=== PATIENT | female | born 1965 | race American Indian/Alaskan Native ===

== ENCOUNTER 2017-07-12 15:10 | Inpatient (IN) | payer OTHER ==
[2017-07-12 15:54] LABS: Basophils % (Auto) 0.8 % (0.0-1.8); Eosinophils % (Auto) 2.4 % (0.0-4.3); Hematocrit 36.7 % (30.3-42.9); Hemoglobin 12.7 gm/dl (10.1-14.3); Mean Corpuscular HGB Conc 35 % (30-34); Mean Corpuscular Hemoglobin 33 pg (28-32); Mean Corpuscular Volume 96 fl (79-97); Platelet Count 258 K/mm3 (140-440); Red Blood Count 3.84 M/mm3 (3.65-5.03); Red Cell Distribution Width 14.3 % (13.2-15.2); White Blood Count 5.5 K/mm3 (4.5-11.0)
[2017-07-12] MEDS ORDERED: ATIVAN IV ONE (15:56)
[2017-07-12 16:12] LABS: Alanine Aminotransferase 19 units/L (7-56); Albumin/Globulin Ratio 1.3 %; Alkaline Phosphatase 64 units/L (35-129); Anion Gap 16 mmol/L; BUN/Creatinine Ratio 18.57; Blood Urea Nitrogen 13 mg/dL (7-17); Calcium 8.8 mg/dL (8.4-10.2); Carbon Dioxide 28 mmol/L (22-30); Chloride 99.5 mmol/L (98-107); Glucose 138 mg/dL (65-100); Potassium 3.5 mmol/L (3.6-5.0); Sodium 140 mmol/L (137-145)
[2017-07-12 16:20] LABS: Creatine Kinase 525 units/L (30-135)
--- NOTE | 2017-07-12 16:44 | Cat Scan Report ---
CT HEAD WITHOUT CONTRAST INDICATION: Syncope. COMPARISON: None similar. FINDINGS: Noncontrast head CT demonstrates normal, symmetric ventricles and sulci without acute or recent infarct, hemorrhage, mass effect or midline shift. No abnormal extra-axial fluid collections. Minimal benign right basal ganglia calcification. Posterior fossa structures and basilar cisterns appear within normal limits. Clear paranasal sinuses and mastoid air cells. Intact calvarium. Normal overlying scalp soft tissues. Numerous radiopaque dental material incidentally noted. CONCLUSION: No acute intracranial CT abnormality, as described. Thank you for the opportunity to participate in this patient's care.
--- NOTE | 2017-07-12 17:19 | Emergency Department Report ---
ED Syncope HPI - General Chief Complaint: Syncope Stated Complaint: SYNCOPE EPISODE/HEADACHE Time Seen by Provider: 07/12/17 15:55 Source: patient Exam Limitations: no limitations - History of Present Illness Initial Comments: 52-year-old female past medical history hypertension and sleep apnea presents to the hospital with complaints of syncope. Patient states she woke up this a.m. with a right sided aching headache. Throughout the day headache gradually worsened and currently 9/10 in intensity. She denied nausea, vomiting, blurry vision, focal weakness, chest pain, or shortness of breath. While at work patient had a syncopal episode preceding by lightheadedness. I was called to the bedside step RN due to seizure like activity. Patient appears to be having a pseudoseizure. She was fluttering her eyes and causing the right side of her mouth to twist. However, patient is able to speak, follow commands, track my finger with her eyes and does not have any neurologic deficits during this seizure like activity. - Related Data Allergies/Adverse Reactions: Allergies No Known Allergies Allergy (Unverified 09/22/13 11:12) Home Medications: Ambulatory Orders Atenolol [Tenormin] 50 mg PO DAILY 09/22/13 Lisinopril [Zestril] 20 mg PO QDAY 09/22/13 Potassium Chloride [Klor-Con 10] 10 meq PO DAILY 09/22/13 Amoxicillin/K Clav Tab [Augmentin 500 mg] 1 each PO Q12HR #20 tablet 06/10/14 Fluticasone [Flonase] 1 spray NS QDAY #1 bottle 06/10/14 Promethazine /Codeine [Phenergan/Codeine 6.25-10 mg/5 ml] 5 ml PO Q6H PRN #120 ml 06/10/14 Cyclobenzaprine [Flexeril] 10 mg PO TID PRN #15 tablet 05/26/16 Ibuprofen [Motrin] 800 mg PO Q8HR PRN #15 tablet 05/26/16 ED Review of Systems ROS: Stated complaint: SYNCOPE EPISODE/HEADACHE Other details as noted in HPI Comment: All other systems reviewed and negative Other: Constitutional: No fevers chills Eyes: No eye pain visual changes ENT: No ear pain or throat pain Neck: Denies pain Respiratory: Denies cough wheezing shortness of breath Cardiovascular: Denies chest pain, palpitations, syncope GI: Denies abdominal pain, nausea, vomiting, diarrhea : Denies dysuria Musculoskeletal: Denies back pain Skin: Denies rash, lesions, erythema Neurologic: as per hpi Psychiatric: Denies suicidal ideation, hallucinations ED Past Medical Hx - Past Medical History Hx Hypertension: Yes Additional medical history: sleep apnea - Surgical History Additional Surgical History: breast surgery 82, left knee pain 2006,PARTIAL HYSTERECTOMY - Social History Smoking Status: Never Smoker Substance Use Type: None - Medications Home Medications: Home Medications Medication Instructions Recorded Confirmed Last Taken Type Atenolol [Tenormin] 50 mg PO DAILY 09/22/13 06/10/14 06/09/14 08:00 History Lisinopril [Zestril] 20 mg PO QDAY 09/22/13 06/10/14 06/09/14 08:00 History Potassium Chloride [Klor-Con 10] 10 meq PO DAILY 09/22/13 06/10/14 06/09/14 08: 00 History Amoxicillin/K Clav Tab [Augmentin 1 each PO Q12HR #20 tablet 06/10/14 Unknown Rx 500 mg] Fluticasone [Flonase] 1 spray NS QDAY #1 bottle 06/10/14 Unknown Rx Promethazine /Codeine 5 ml PO Q6H PRN #120 ml 06/10/14 Unknown Rx [Phenergan/Codeine 6.25-10 mg/5 ml] Cyclobenzaprine [Flexeril] 10 mg PO TID PRN #15 tablet 05/26/16 Unknown Rx Ibuprofen [Motrin] 800 mg PO Q8HR PRN #15 tablet 05/26/16 Unknown Rx ED Physical Exam - General Limitations: No Limitations - Other Other exam information: General: No limitations Head exam: Atraumatic, normocephalic Eyes exam: Normal appearance ENT: Moist mucous membrane, normal oropharynx Neck exam: Normal inspection, full range of motion Respiratory exam: Clear to auscultation bilateral, no wheezes, rales, crackles Cardiovascular: Normal rate and rhythm, normal heart sounds Abdomen: Soft, nondistended, and nontender, with normal bowel sounds, no rebound, or guarding Extremity: Full range of motion normal inspection no deformity Back: Normal Inspection, full range of motion, no tenderness Neurologic: Alert, oriented x3, cranial nerves intact, no motor or sensory deficit Psychiatric: normal affect, normal mood Skin: Warm, dry, intact ED Course Vital Signs 07/12/17 07/12/17 07/12/17 15:21 16:10 17:59 Temperature 98.6 F 98.4 F Pulse Rate 70 65 70 Respiratory 23 23 18 Rate Blood Pressure 166/84 Blood Pressure 152/74 127/69 [Left] O2 Sat by Pulse 97 95 98 Oximetry - Reevaluation(s) Reevaluation #1: 07/12/17 Patient decreased fluttering eye movements during examination but received Ativan 0.5 mg ED Medical Decision Making - Lab Data Result diagrams: 07/12/17 15:36 07/12/17 15:36 Lab Results 07/12/17 07/12/17 07/12/17 Range/Units 15:36 15:36 15:49 WBC 5.5 (4.5-11.0) K/mm3 RBC 3.84 (3.65-5.03) M/mm3 Hgb 12.7 (10.1-14.3) gm/dl Hct 36.7 (30.3-42.9) % MCV 96 (79-97) fl MCH 33 H (28-32) pg MCHC 35 H (30-34) % RDW 14.3 (13.2-15.2) % Plt Count 258 (140-440) K/mm3 Lymph % (Auto) 33.6 (13.4-35.0) % [place] % (Auto) 7.6 H (0.0-7.3) % Eos % (Auto) 2.4 (0.0-4.3) % Baso % (Auto) 0.8 (0.0-1.8) % Lymph # 1.9 (1.2-5.4) K/mm3 [place] # 0.4 (0.0-0.8) K/mm3 Eos # 0.1 (0.0-0.4) K/mm3 Baso # 0.0 (0.0-0.1) K/mm3 Seg Neutrophils % 55.6 (40.0-70.0) % Seg Neutrophils # 3.1 (1.8-7.7) K/mm3 Sodium 140 (137-145) mmol/L Potassium 3.5 L (3.6-5.0) mmol/L Chloride 99.5 (98-107) mmol/L Carbon Dioxide 28 (22-30) mmol/L Anion Gap 16 mmol/L BUN 13 (7-17) mg/dL Creatinine 0.7 (0.7-1.2) mg/dL Estimated GFR > 60 ml/min BUN/Creatinine Ratio 18.57 % Glucose 138 H (65-100) mg/dL POC Glucose (70-105) Calcium 8.8 (8.4-10.2) mg/dL Total Bilirubin 0.30 (0.1-1.2) mg/dL AST 23 (5-40) units/L ALT 19 (7-56) units/L Alkaline Phosphatase 64 (35-129) units/L Total Creatine Kinase 525 H (30-135) units/L Troponin T < 0.010 (0.00-0.029) ng/mL Total Protein 7.0 (6.3-8.2) g/dL Albumin 4.0 (3.9-5) g/dL Albumin/Globulin Ratio 1.3 % Triglycerides (2-149) mg/dL Cholesterol (50-199) mg/dL LDL Cholesterol Direct (50-130) mg/dL HDL Cholesterol (40-59) mg/dL Cholesterol/HDL Ratio % 07/12/17 07/12/17 Range/Units 15:49 15:57 WBC (4.5-11.0) K/mm3 RBC (3.65-5.03) M/mm3 Hgb (10.1-14.3) gm/dl Hct (30.3-42.9) % MCV (79-97) fl MCH (28-32) pg MCHC (30-34) % RDW (13.2-15.2) % Plt Count (140-440) K/mm3 Lymph % (Auto) (13.4-35.0) % [place] % (Auto) (0.0-7.3) % Eos % (Auto) (0.0-4.3) % Baso % (Auto) (0.0-1.8) % Lymph # (1.2-5.4) K/mm3 [place] # (0.0-0.8) K/mm3 Eos # (0.0-0.4) K/mm3 Baso # (0.0-0.1) K/mm3 Seg Neutrophils % (40.0-70.0) % Seg Neutrophils # (1.8-7.7) K/mm3 Sodium (137-145) mmol/L Potassium (3.6-5.0) mmol/L Chloride (98-107) mmol/L Carbon Dioxide (22-30) mmol/L Anion Gap mmol/L BUN (7-17) mg/dL Creatinine (0.7-1.2) mg/dL Estimated GFR ml/min BUN/Creatinine Ratio % Glucose (65-100) mg/dL POC Glucose 135 H (70-105) Calcium (8.4-10.2) mg/dL Total Bilirubin (0.1-1.2) mg/dL AST (5-40) units/L ALT (7-56) units/L Alkaline Phosphatase (35-129) units/L Total Creatine Kinase (30-135) units/L Troponin T (0.00-0.029) ng/mL Total Protein (6.3-8.2) g/dL Albumin (3.9-5) g/dL Albumin/Globulin Ratio % Triglycerides 143 (2-149) mg/dL Cholesterol 191 (50-199) mg/dL LDL Cholesterol Direct 120 (50-130) mg/dL HDL Cholesterol 43 (40-59) mg/dL Cholesterol/HDL Ratio 4.44 % - EKG Data -: EKG Interpreted by Me (sinus rate 68 LVH lateral T inversion) - EKG Data When compared to previous EKG there are: previous EKG unavailable - Radiology Data Radiology results: report reviewed (CT head: No acute findings) - Medical Decision Making Other differential intracranial hemorrhage Plan to admit patient to hospital due to syncopal episode. CT unremarkable. Exhibiting pseudoseizure like activity in the ED. - Differential Diagnosis pseudoseizure, seizure, syncope, vasovagal, anemia, arrhythmia, migraine, Critical Care Time: No Critical care attestation.: If time is entered above; I have spent that time in minutes in the direct care of this critically ill patient, excluding procedure time. ED Disposition Clinical Impression: Syncope, Pseudoseizure Disposition: OP ADMIT IP TO THIS HOSP Is pt being admited?: Yes Condition: Stable Time of Disposition: 17:40 (Dr Manrique/hosp)
--- NOTE | 2017-07-12 17:41 | History and Physical Report ---
History of Present Illness Chief complaint: I have a headache, and i passed out History of present illness: 52 YO Female with Obesity, TOMMY, HTN presents to ED for evaluation. Pt states that she experienced an acute onset headache upon waking this morning, which worsened throughout the day, and while working at her job she began to feel lightheaded, and subsequently lost consciousness. EMS notified, and patient transported to [facility]. Pt denies fever, chills, CP, Palpitations, Trauma, Vision loss, blurred vision, NVD. Pt seen and evaluated in ED and observed to have evidence of focal seizure like activity. Past History Past Medical History: hypertension, other (obesity,TOMMY) Past Surgical History: hysterectomy, Other (breast surgery) Social history: , lives with family. denies: smoking, alcohol abuse, prescription drug abuse, IV drug use Family history: diabetes, hypertension Medications and Allergies Allergies Allergy/AdvReac Type Severity Reaction Status Date / Time No Known Allergies Allergy Unverified 09/22/13 11:12 Home Medications Medication Instructions Recorded Confirmed Last Taken Type Atenolol [Tenormin] 50 mg PO DAILY 09/22/13 07/12/17 06/09/14 08:00 History Lisinopril [Zestril] 20 mg PO QDAY 09/22/13 07/12/17 06/09/14 08:00 History Potassium Chloride [Klor-Con 10] 20 meq PO DAILY 09/22/13 07/12/17 06/09/14 08: 00 History Triamterene/Hydrochlorothiazid 1 cap PO QDAY 07/12/17 07/12/17 Unknown History [Triamterene-Hctz 50-25 mg Cap] Review of Systems Constitutional: no weight loss, no weight gain, no fever, no chills, no sweats Ears, nose, mouth and throat: no ear pain, no ear discharge, no tinnitis, no decreased hearing, no nose pain Breasts: no change in shape, no swelling, no mass Cardiovascular: syncope, no chest pain, no orthopnea, no palpitations, no rapid/ irregular heart beat, no edema Respiratory: no cough, no cough with sputum, no excessive sputum, no hemoptysis , no shortness of breath Gastrointestinal: no abdominal pain, no nausea, no vomiting, no diarrhea, no constipation Genitourinary Female: no pelvic pain, no flank pain, no menorrhagia, no dysuria , no urinary frequency, no urgency Rectal: no pain, no incontinence, no bleeding Musculoskeletal: no neck stiffness, no neck pain, no shooting arm pain, no arm numbness/tingling, no low back pain, no shooting leg pain, no leg numbness/ tingling Integumentary: no rash, no pruritis, no redness, no sores, no wounds, no jaundice Neurological: seizures, syncope, no transient paralysis, no paralysis, no weakness, no tingling, no tremors, no ataxia, no lack of coordination Psychiatric: no anxiety, no memory loss, no change in sleep habits, no sleep disturbances, no insomnia, no hypersomnia, no change in appetite, no change in libido Endocrine: no cold intolerance, no heat intolerance, no polyphagia, no excessive thirst, no polydipsia, no polyuria, no nocturia Hematologic/Lymphatic: no easy bruising, no easy bleeding Allergic/Immunologic: no urticaria, no allergic rhinitis, no wheezing Exam - Constitutional Vitals: Temp Pulse Resp BP Pulse Ox 98.4 F 65 23 152/74 95 07/12/17 16:10 07/12/17 16:10 07/12/17 16:10 07/12/17 16:10 07/12/17 16:10 General appearance: Present: mild distress, obese - EENT Eyes: Present: PERRL ENT: hearing intact, clear oral mucosa - Neck Neck: Present: supple, normal ROM - Respiratory Respiratory effort: normal Respiratory: bilateral: CTA - Cardiovascular Heart Sounds: Present: S1 & S2. Absent: rub, click - Extremities Extremities: pulses symmetrical, No edema Peripheral Pulses: within normal limits - Abdominal General gastrointestinal: Present: soft, non-tender, non-distended, normal bowel sounds Female genitourinary: Present: normal - Integumentary Integumentary: Present: clear, warm, dry - Musculoskeletal Musculoskeletal: gait normal, strength equal bilaterally - Psychiatric Psychiatric: appropriate mood/affect, intact judgment & insight - Neurologic Neurologic: CNII-XII intact, moves all extremities Results - Labs CBC & Chem 7: 07/12/17 15:36 07/12/17 15:36 Labs: Abnormal lab results 07/12/17 07/12/17 07/12/17 Range/Units 15:36 15:36 15:49 MCH 33 H (28-32) pg MCHC 35 H (30-34) % [place] % (Auto) 7.6 H (0.0-7.3) % Potassium 3.5 L (3.6-5.0) mmol/L Glucose 138 H (65-100) mg/dL POC Glucose (70-105) Total Creatine Kinase 525 H (30-135) units/L 07/12/17 Range/Units 15:57 MCH (28-32) pg MCHC (30-34) % [place] % (Auto) (0.0-7.3) % Potassium (3.6-5.0) mmol/L Glucose (65-100) mg/dL POC Glucose 135 H (70-105) Total Creatine Kinase (30-135) units/L Assessment and Plan - Patient Problems (1) CVA (cerebral vascular accident) Current Visit: Yes Status: Acute Qualifiers: CVA mechanism: C Precerebral and cerebral artery: P Laterality of affected vessel: L Plan to address problem: Stroke protocol: Antiplatelet therapy, CT head, MRI, MRA, Echo, carotid Doppler , Lipid panel, PT/OT/ Speech therapy (2) Unconscious state Current Visit: Yes Status: Acute Plan to address problem: CT head, neuro checks, serial physical exam, (3) Accelerated essential hypertension Current Visit: Yes Status: Acute Plan to address problem: Monitor bp q shift, permissive htn overnight: Systolic range 165-185 (4) Pseudoseizure Current Visit: Yes Status: Acute Plan to address problem: EEG, Neuro checks, supportive care (5) DVT prophylaxis Current Visit: Yes Status: Acute
[2017-07-12] MEDS ORDERED: PROVENTIL IH PRN (17:54)
[2017-07-12] MEDS ORDERED: ZOFRAN IV PRN ×2 (17:54→17:56)
[2017-07-12] MEDS ORDERED: SODIUM CHLORIDE FLUSH SYRINGE 10 ML IV PRN (17:56)
[2017-07-12] MEDS ORDERED: REGLAN PO PRN (17:56)
[2017-07-12] MEDS ORDERED: MILK OF MAGNESIA PO PRN (17:56)
[2017-07-12] MEDS ORDERED: DULCOLAX PR PRN (17:56)
[2017-07-12] MEDS ORDERED: TYLENOL PO PRN (17:56)
[2017-07-12] MEDS ORDERED: PHENERGAN PR PRN (17:56)
--- NOTE | 2017-07-12 19:35 | Magnetic Resonance Report ---
FINAL REPORT PROCEDURE: Magnetic resonance angiogram of the brain without contrast. TECHNIQUE: Axial 3-D [id number] MR angiography of the [place] and brain was performed. The source images were reconstructed in various views using maximum intensity projection. HISTORY: Stroke. COMPARISON: No prior studies are available for comparison. FINDINGS: Both distal internal carotid arteries are patent. Both anterior cerebral arteries are patent. The anterior communicating artery is not definitely visualized. Both middle cerebral arteries are patent. The posterior communicating arteries are not visible. Both distal vertebral arteries are patent. Both posterior inferior cerebellar arteries are patent. The basilar artery is patent. The anterior inferior cerebellar arteries are not visible. Both superior cerebellar and both posterior cerebral arteries are patent. There are no signs of aneurysm disease. There are no signs of a vasculitis. There are no definite embolic occlusions. IMPRESSION: No significant abnormality.
[2017-07-12] MEDS: PERCOCET 5/325 PO PRN (19:38)
--- NOTE | 2017-07-12 20:22 | Magnetic Resonance Report ---
FINAL REPORT PROCEDURE: MRI brain without contrast. TECHNIQUE: Magnetic resonance imaging of the brain was performed without contrast material. HISTORY: Stroke. COMPARISON: CT head done earlier today. FINDINGS: The ventricles are normal in size. There are a few tiny focal areas of FLAIR signal abnormality within the white matter of both cerebral hemispheres. This is not unusual for age and likely represents chronic microvascular ischemic change. The [place]errill matter and white matter otherwise have normal signal intensity. There are no mass lesions. There is no intracranial hemorrhage. There are no signs of restricted diffusion. The major cerebral vascular flow voids appear patent. The mastoid air cells and paranasal sinuses are clear. IMPRESSION: Normal study for age.
[2017-07-12] MEDS: ZOCOR PO SCH (22:10)
[2017-07-13] MEDS ORDERED: K-DUR PO NR (11:00)
[2017-07-13] MEDS ORDERED: PNEUMOVAX 23 IM ONE (12:00)
[2017-07-13] MEDS ORDERED: Fluarix Quad 2017-2018(36 MOS+) IM ONE (12:00)
[2017-07-13] MEDS: PERCOCET 5/325 PO PRN (14:45)
--- NOTE | 2017-07-13 15:31 | Progress Note ---
Assessment and Plan CVA (cerebral vascular accident) Suspected on admission admitted with Stroke protocol: cont Antiplatelet therapy, CT head, MRI, MRA, negative for acute CVA FOLLOW Echo, carotid Doppler, Lipid panel Unconscious state LIKELY FROM SYNCOPE WAIT FOR 2D ECHO Accelerated essential hypertension Monitor bp q shift, RESUME HOME MEDS Pseudoseizure ORDERED EEG, CONTINUE Neuro checks, supportive care CONSULTED NEURO Mild rhabdomyolysis - likely from pseudoseizure?? - monitor CPK, iv fluid Hypokalemia - replete and monitor DVT prophylaxis Current Visit: Yes Status: Acute ON [place] Subjective Date of service: 07/13/17 Interval history: Pt seen and examined c/o generalized weakness family was at bedside, updated Objective - Constitutional Vitals: Vital Signs - 12hr 07/13/17 07/13/17 07/13/17 03:48 04:25 09:51 Temperature 98.6 F Pulse Rate 64 60 Respiratory 20 Rate Respiratory Rate [Head] Blood Pressure Blood Pressure 146/79 [Left] O2 Sat by Pulse 99 100 Oximetry 07/13/17 07/13/17 07/13/17 10:00 10:07 12:04 Temperature 98.5 F Pulse Rate 60 63 Respiratory 20 20 Rate Respiratory 20 Rate [Head] Blood Pressure 142/73 Blood Pressure [Left] O2 Sat by Pulse 100 96 Oximetry 07/13/17 14:45 Temperature Pulse Rate Respiratory 20 Rate Respiratory Rate [Head] Blood Pressure Blood Pressure [Left] O2 Sat by Pulse Oximetry General appearance: Present: no acute distress, obese - EENT Eyes: PERRL, EOM intact ENT: hearing intact, clear oral mucosa Ears: bilateral: normal - Neck Neck: supple, normal ROM - Respiratory Respiratory effort: normal Respiratory: bilateral: CTA - Cardiovascular Rhythm: regular Heart Sounds: Present: S1 & S2. Absent: gallop, rub Extremities: pulses intact, No edema, normal color, Full ROM - Gastrointestinal General gastrointestinal: Present: soft, non-tender, non-distended, normal bowel sounds - Integumentary Integumentary: clear, warm, dry - Musculoskeletal Musculoskeletal: 1, strength equal bilaterally - Neurologic Neurologic: moves all extremities - Psychiatric Psychiatric: cooperative - Labs CBC & Chem 7: 07/12/17 15:36 07/12/17 15:36 - Imaging and cardiology CT Scan - head: report reviewed (no acute process) MRI - head: report reviewed (no acute cva)
[2017-07-13] MEDS ORDERED: HYDROCHLOROTHIAZID PO SCH (18:30)
[2017-07-13] MEDS ORDERED: TRIAMTERENE PO SCH (18:30)
[2017-07-13] MEDS ORDERED: NON-FORMULARY (Potassium Chloride [Klor-Con 10] 20 MEQ) PO SCH (18:30)
[2017-07-13] MEDS: ZESTRIL PO SCH (21:18)
[2017-07-13] MEDS: TENORMIN PO SCH (21:18)
[2017-07-13] MEDS: ZOCOR PO SCH (21:19)
[2017-07-13] MEDS: MAXZIDE-25 PO SCH (21:19)
[2017-07-13] MEDS: K-DUR PO SCH (21:19)
[2017-07-14] MEDS: PERCOCET 5/325 PO PRN ×2 (00:25→07:52)
--- NOTE | 2017-07-14 09:38 | History and Physical Report ---
History of Present Illness Date of examination: 07/14/17 Date of admission: 07/12/17 18:55 Chief complaint: NEUROLOGY CONSULT NOTE: Hx reviewed in chart and with patient who is lying in bed with in room ( who spent the night in her room). 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 This was dull and steady, not throbbing and pounding, no n or v, no visual scintillations. She had breakfast at work, worked till approx noon (she usually gets off at 2 pm ), then felt light headed. She was walking and felt more light headed, said so , and a boiler house supervisor lowered her to the floor (she did not fall down). The next thing the patient was aware of was the fire dept there and ambulance personnel as well. She was bought to the ED where an elaborated seizure was witnessed and nasir described by Dr Shayna Sidhu (see her note of 07/12) with eyes fluttering, her mouth twisted to the right side, but able to talk and follow commands the whole time. she could move her eyes to the right and to the left on command. An MRI/MRA of brain were normal as was a CT scan head. 2D echo normal with EF 55 - 60%. The patient has been very "tired" for six months, has HTN and OBS using CPAP for over ten years, has gained 30 lbs in two years. ROS: no unilat weakness or numbness, no diplopia, no speech difficulty, no antecedent hx CARREON or of syncope or of Seizures. no fam hx seizurues. no recent fever, sweats, chills, no chest pain or cardiac palp. An 11 point ROS is negative. SH/FH not re-reviewed MEDS/ALLERGIES: see chart EXAM: MS: fully alert, cooperative, speech fluent and clear without errors, recent and remote memory normal, fund of knowledge normal CN: 2 - 12 nl MOT: nl all four extem prox and dist SENS: in tact to light touch througout CEREB: fnf nl bilat DRTs: 1+ biceps bilat, trace at knees, absent at ankles, both great toes downgoing to plantar stim. GAIT: not tested due to fall risk. NECK: supple COR: no m, rubs, gallops LUNGS: clear to a EXTREM: no edema, no trauma IMP: 1. Depression, significant, as cause of her fatigue, wt gain, with pseudoseizure as cry for help. 2. Syncope, ? secondary to cardiac rhythm disturbance, ?hypotension 3. TOMMY 4. Weight excess with recent continued wt gain of 30 lbs over two years 5. Hx hypertension. RECC: 1. Delete "CVA" or "stroke" from problem list. She has never had such. 2. I will order EEG. IF normal, likely, no further neuro work up needed. 3. I will order CT of neck (re hx of being laid down on floor - Pt is very heavy and ? abil to get her fully to the floor gently) 4. You order Psychiatry consult re depression 5. Consider cardiol consult 6. Try Fioricet two po q 6 hrs prn headache 7. Go from there. Hugo Javier MD Past History Past Medical History: hypertension, other (obesity,TOMMY) Past Surgical History: hysterectomy, Other (breast surgery) Social history: , lives with family. denies: smoking, alcohol abuse, prescription drug abuse, IV drug use Family history: diabetes, hypertension Medications and Allergies Allergies Allergy/AdvReac Type Severity Reaction Status Date / Time No Known Allergies Allergy Unverified 09/22/13 11:12 Home Medications Medication Instructions Recorded Confirmed Last Taken Type Atenolol [Tenormin] 50 mg PO DAILY 09/22/13 07/12/17 06/09/14 08:00 History Lisinopril [Zestril] 20 mg PO QDAY 09/22/13 07/12/17 06/09/14 08:00 History Potassium Chloride [Klor-Con 10] 20 meq PO DAILY 09/22/13 07/12/17 06/09/14 08: 00 History Triamterene/Hydrochlorothiazid 1 cap PO QDAY 07/12/17 07/12/17 Unknown History [Triamterene-Hctz 50-25 mg Cap] Active Meds: Active Medications Acetaminophen (Tylenol) 650 mg PO Q4H PRN PRN Reason: Pain MILD(1-3)/Fever >100.5/CARREON Albuterol (Proventil) 2.5 mg IH Q4HRT PRN PRN Reason: Shortness Of Breath Atenolol (Tenormin) 50 mg PO DAILY [facility] Last Admin: 07/13/17 21:18 Dose: 50 mg Bisacodyl (Dulcolax) 10 mg VT QDAY PRN PRN Reason: Constipation Lisinopril (Zestril) 20 mg PO QDAY [facility] Last Admin: 07/13/17 21:18 Dose: 20 mg Magnesium Hydroxide (Milk Of Magnesia) 30 ml PO Q4H PRN PRN Reason: Constipation Metoclopramide HCl (Reglan) 10 mg PO Q6H PRN PRN Reason: Nausea And Vomiting Ondansetron HCl (Zofran) 4 mg IV Q8H PRN PRN Reason: N/V unrelieved by Reglan Oxycodone/Acetaminophen (Percocet 5/325) 1 tab PO Q6H PRN PRN Reason: Pain, Moderate (4-6) Last Admin: 07/14/17 07:52 Dose: 1 tab Potassium Chloride (K-Dur) 20 meq PO QDAY [facility] Last Admin: 07/13/17 21:19 Dose: 20 meq Promethazine HCl (Phenergan) 25 mg VT Q6H PRN PRN Reason: Nausea And Vomiting Simvastatin (Zocor) 20 mg PO QHS [facility] Last Admin: 07/13/17 21:19 Dose: 20 mg Sodium Chloride (Sodium Chloride Flush Syringe 10 Ml) 10 ml IV PRN PRN PRN Reason: LINE FLUSH Triamterene/HCTZ (Maxzide-25) 1 each PO QAM [facility] Last Admin: 07/13/17 21:19 Dose: 1 each Physical Examination - Vital Signs Vital Signs: Vital Signs Temp Pulse Resp BP Pulse Ox 98.6 F 70 23 166/84 97 07/12/17 15:21 07/12/17 15:21 07/12/17 15:21 07/12/17 15:21 07/12/17 15:21 Results - Laboratory Findings CBC and BMP: 07/12/17 15:36 07/12/17 15:36
--- NOTE | 2017-07-14 11:02 | Cat Scan Report ---
CT scan of cervical spine: History: Syncope with fall to the floor. Headache. Findings: The odontoid process and lateral mass appears intact. Anterior and posterior arch of atlas and occipital condyles appears normal. Normal height of vertebral bodies. Decrease in height of C3-C4, C4-C5, C5-C6 and C6-C7. Osteophytes are identified anterolaterally. Calcification of posterior longitudinal ligament. No evidence of acute fracture. Normal prevertebral soft tissue. Impression: Moderate to severe mid and lower cervical spine spondylosis. No acute fracture.
[2017-07-14] MEDS: TENORMIN PO SCH (12:24)
[2017-07-14] MEDS: MAXZIDE-25 PO SCH (12:24)
[2017-07-14] MEDS: ZESTRIL PO SCH (12:24)
[2017-07-14] MEDS: K-DUR PO SCH (12:25)
[2017-07-14 14:09] LABS: Anion Gap 18 mmol/L; BUN/Creatinine Ratio 21.66; Blood Urea Nitrogen 13 mg/dL (7-17); Calcium 9.2 mg/dL (8.4-10.2); Carbon Dioxide 25 mmol/L (22-30); Chloride 97.6 mmol/L (98-107); Glucose 169 mg/dL (65-100); Sodium 137 mmol/L (137-145)
--- NOTE | 2017-07-14 16:14 | Progress Note ---
Assessment and Plan CVA (cerebral vascular accident) Suspected on admission, ruled out admitted with Stroke protocol: CT head, MRI, MRA, negative for acute CVA Preserved EF on Echo, less than 50% stenosis on carotid Doppler Unconscious state LIKELY FROM VASOVAGAL SYNCOPE Differential also includes seizure/pseudoseizure, wait for EEG report Accelerated essential hypertension Monitor bp q shift, RESUME HOME MEDS Pseudoseizure ORDERED EEG, CONTINUE Neuro checks, supportive care CONSULTED NEURO Mild rhabdomyolysis - likely from pseudoseizure?? - monitor CPK, iv fluid Hypokalemia - replete and monitor TOMMY - CAPAP at bedtime DVT prophylaxis Current Visit: Yes Status: Acute ON LOVENOX Brief history: 52 YO Female with Obesity, TOMMY, HTN presents to ED for evaluation. Pt stated that she experienced an acute onset headache upon waking in the morning, which worsened throughout the day, and while working at her job she began to feel lightheaded, and subsequently lost consciousness. EMS notified , and patient transported to [facility]. Active medications: Generic Name Dose Route Start Last Admin Trade Name Freq PRN Reason Stop Dose Admin Acetaminophen 650 mg 07/12/17 17:54 07/15/17 05:50 Tylenol PO 650 mg Q4H PRN Administration Pain MILD(1-3)/Fever >100.5/CARREON Albuterol 2.5 mg 07/12/17 17:54 Proventil IH Q4HRT PRN Shortness Of Breath Atenolol 50 mg 07/13/17 19:00 07/14/17 12:24 Tenormin PO 50 mg DAILY LINA Administration Bisacodyl 10 mg 07/12/17 17:56 Dulcolax ND QDAY PRN Constipation Sodium Chloride 1,000 mls @ 100 mls/hr 07/14/17 12:00 07/15/17 05:51 Nacl 0.9% 1000 Ml IV 100 mls/hr DIRECT LINA Administration Lisinopril 20 mg 07/13/17 19:00 07/14/17 12:24 Zestril PO 20 mg QDAY LINA Administration Magnesium Hydroxide 30 ml 07/12/17 17:56 Milk Of Magnesia PO Q4H PRN Constipation Metoclopramide HCl 10 mg 07/12/17 17:56 Reglan PO Q6H PRN Nausea And Vomiting Ondansetron HCl 4 mg 07/12/17 17:54 Zofran IV Q8H PRN N/V unrelieved by Reglan Oxycodone/Acetaminophen 1 tab 07/12/17 17:54 07/14/17 07:52 Percocet 5/325 PO 1 tab Q6H PRN Administration Pain, Moderate (4-6) Potassium Chloride 20 meq 07/13/17 19:00 07/14/17 12:25 K-Dur PO 20 meq QDAY LINA Administration Promethazine HCl 25 mg 07/12/17 17:56 Phenergan ND Q6H PRN Nausea And Vomiting Simvastatin 20 mg 07/12/17 22:00 07/14/17 21:23 Zocor PO 20 mg QHS LINA Administration Sodium Chloride 10 ml 07/12/17 17:56 Sodium Chloride Flush Syringe 10 Ml IV PRN PRN LINE FLUSH Triamterene/HCTZ 1 each 07/13/17 19:00 07/14/17 12:24 Maxzide-25 PO 1 each QAM LINA Administration Subjective Date of service: 07/14/17 Interval history: Pt seen and examined States that she feels better, appetite is slightly improved family was at bedside, updated Objective - Constitutional Vitals: Vital Signs - 12hr 07/14/17 07/14/17 05:25 12:00 Temperature 97.5 F L Pulse Rate 61 60 Respiratory 20 Rate Blood Pressure 123/70 [Left] O2 Sat by Pulse 94 Oximetry - Labs CBC & Chem 7: 07/12/17 15:36 07/14/17 13:02 Labs: Abnormal lab results 07/14/17 07/14/17 Range/Units 13:02 13:02 Chloride 97.6 L (98-107) mmol/L Creatinine 0.6 L (0.7-1.2) mg/dL Glucose 169 H (65-100) mg/dL Total Creatine Kinase 382 H (30-135) units/L
[2017-07-14] MEDS: TYLENOL PO PRN ×2 (18:16→21:24)
[2017-07-14] MEDS: NACL 0.9% 1000 ML 1,000 ML IV SCH (18:17)
[2017-07-14] MEDS: ZOCOR PO SCH (21:23)
[2017-07-15] MEDS: TYLENOL PO PRN (05:50)
[2017-07-15] MEDS: NACL 0.9% 1000 ML 1,000 ML IV SCH (05:51)
[2017-07-15] MEDS: TENORMIN PO SCH (09:40)
[2017-07-15] MEDS: K-DUR PO SCH (09:40)
[2017-07-15] MEDS: MAXZIDE-25 PO SCH (09:41)
[2017-07-15] MEDS: ZESTRIL PO SCH (09:41)
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
--- NOTE | 2017-07-15 14:22 | Discharge Summary ---
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 [phone] Was contact made?: Yes [facility] yes[facility] 11:25 07/15/17 11:44 Consult to Physician [CONS] Routine Consulting Provider: GEORGE CULP Reason For Exam: syncope Place consult to:: Dr. 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 Hospitalization Condition: Stable Hospital course: CVA (cerebral vascular accident) Suspected on admission, ruled out admitted with Stroke protocol: CT head, MRI, MRA, negative for acute CVA Preserved EF on Echo, less than 50% stenosis on carotid Doppler Unconscious state LIKELY FROM VASOVAGAL SYNCOPE Differential also includes seizure/pseudoseizure, EEG outpt No further intervention per cardiology Accelerated essential hypertension Monitor bp q shift, RESUMEd HOME MEDS better controlled on discharge Pseudoseizure ORDERED EEG, CONTINUE Neuro checks, supportive care CONSULTED NEURO Mild rhabdomyolysis - likely from pseudoseizure?? - monitor CPK, iv fluid Hypokalemia - replete and monitor TOMMY - CAPAP at bedtime DVT prophylaxis Current Visit: Yes Status: Acute ON LOVENOX Brief history: 52 YO Female with Obesity, TOMMY, HTN presents to ED for evaluation. Pt stated that she experienced an acute onset headache upon waking in the morning, which worsened throughout the day, and while working at her job she began to feel lightheaded, and subsequently lost consciousness. EMS notified , and patient transported to [facility]. Disposition: DC-01 TO HOME OR SELFCARE Core Measure Documentation - Palliative Care Palliative Care/ Comfort Measures: Not Applicable - Core Measures Any of the following diagnoses?: none Exam - Physical Exam Narrative exam: General appearance: Present: no acute distress, obese - EENT Eyes: PERRL, EOM intact ENT: hearing intact, clear oral mucosa Ears: bilateral: normal - Neck Neck: supple, normal ROM - Respiratory Respiratory effort: normal Respiratory: bilateral: CTA - Cardiovascular Rhythm: regular Heart Sounds: Present: S1 & S2. Absent: gallop, rub Extremities: pulses intact, No edema, normal color, Full ROM - Gastrointestinal General gastrointestinal: Present: soft, non-tender, non-distended, normal bowel sounds - Integumentary Integumentary: clear, warm, dry - Musculoskeletal Musculoskeletal: 1, strength equal bilaterally - Neurologic Neurologic: moves all extremities - Psychiatric Psychiatric: cooperative - Constitutional Vitals: Temp Pulse Resp BP Pulse Ox 98.4 F 68 22 123/64 95 07/15/17 09:15 07/15/17 12:00 07/15/17 09:15 07/15/17 09:41 07/15/17 09:15 Plan Follow up with: PRIMARY CAREMD [Primary Care Provider] - 7 Days
[2017-07-15 18:29] VITALS: BP 137/75
--- NOTE | 2017-07-16 10:55 | Vascular Lab Report ---
CAROTID DUPLEX STUDY: RIGHT PSVEDV CCA PROX:[id number] CCA DIST:[id number] ICA PROX:6710 ICA MID:7115 ICA DIST:8621 ECA: 116 VERT: 45 8 LEFT PSVEDV CCA PROX:9314 CCA DIST:6713 ICA PROX:8416 ICA MID:9822 ICA DIST:[id number] ECA: 132 VERT: 68 12 REASON FOR EXAM: Stroke. COMMENTS ON THE RIGHT: Doppler frequency analysis is consistent with 16 to 49 percent diameter reduction of the internal carotid artery. Minimal amount of plaque is seen. The common carotid artery is patent. The external carotid artery is patent. The vertebral artery has antegrade flow. COMMENTS ON THE LEFT: Doppler frequency analysis is consistent with 16 to 49 percent diameter reduction of the internal carotid artery. Minimal amount of plaque is seen. The common carotid artery is patent. The external carotid artery is patent. The vertebral artery has antegrade flow. IMPRESSION: Less than 50% diameter reduction in the internal carotid arteries bilaterally. Consider repeat carotid artery duplex in 12 months.
== END 2017-07-15 18:00 | disposition home or self-care (01) | DRG 312 ==
LOC: ED 15:10 → 4A 18:55
PROVIDERS: ADMIT Internal Medicine; ATTEND Internal Medicine
DX: R55 Syncope and collapse (principal); Z68.42 Body mass index [BMI] 45.0-49.9, adult; M62.82 Rhabdomyolysis; G47.33 Obstructive sleep apnea (adult) (pediatric); I10 Essential (primary) hypertension; E87.6 Hypokalemia; E66.9 Obesity, unspecified; Z83.3 Family history of diabetes mellitus; Z82.49 Family history of ischemic heart disease and other diseases of the circulatory system; Z90.710 Acquired absence of both cervix and uterus; Z79.899 Other long term (current) drug therapy
CPT/HCPCS: 36415; 70450; 70544; 70551; 72125; 80048; 80053; 80061; 82550; 82962; 84484; 85025; 90686; 90732; 93005; 93010; 93306; 93880; 94660; 95819; 96374; J2060; J7030

== ENCOUNTER 2021-03-13 16:30 | Emergency (ER) | payer BC, OTHER ==
[2021-03-13 20:52] LABS: Basophils # (Auto) 0.1 K/mm3 (0.0-0.1); Basophils % (Auto) 0.8 % (0.0-1.8); Eosinophils # (Auto) 0.1 K/mm3 (0.0-0.4); Eosinophils % (Auto) 1.2 % (0.0-4.3); Hemoglobin 11.9 gm/dl (10.1-14.3); Lymphocytes # (Auto) 3.1 K/mm3 (1.2-5.4); Lymphocytes % (Auto) 28.2 % (13.4-35.0); Mean Corpuscular HGB Conc 33 % (30-34); Mean Corpuscular Volume 100 fl (79-97); Monocytes # (Auto) 0.7 K/mm3 (0.0-0.8); Monocytes % (Auto) 6.5 % (0.0-7.3); Platelet Count 340 K/mm3 (140-440); Red Blood Count 3.59 M/mm3 (3.65-5.03); Red Cell Distribution Width 14.3 % (13.2-15.2)
[2021-03-13 21:00] LABS: Albumin 4.2 g/dL (3.9-5); Calcium 9.1 mg/dL (8.4-10.2)
[2021-03-13 21:15] LABS: Bacteria,Urine 1+ /HPF (Negative); Bilirubin,Urine NEG (Negative); Blood,Urine NEG (Negative); Color,Urine Straw (Yellow); Protein,Urine <15 mg/dL mg/dL (Negative); RBC,Urine < 1.0 /HPF (0.0-6.0); Urobilinogen,Urine < 2.0 mg/dL (<2.0)
[2021-03-14] MEDS ORDERED: SODIUM CHLORIDE 0.9% 1000 ML 1,000 ML IV ONE (02:11)
[2021-03-14] MEDS ORDERED: ONDANSETRON 4 MG/2 ML INJ IV ONE (02:11)
[2021-03-14] MEDS ORDERED: HYDROmorphone 1 MG/1 ML INJ IV ONE (02:11)
--- NOTE | 2021-03-14 02:14 | Emergency Department Report ---
ED Abdominal Pain HPI - General Chief Complaint: Abdominal Pain Stated Complaint: BACK PAIN PUI?: No Time Seen by Provider: 03/14/21 02:11 Source: patient Mode of arrival: Ambulatory Limitations: No Limitations - History of Present Illness Initial Comments: Patient is a 55-year-old female who presents emergency room with complaints of right flank pain, right lower back pain, right upper quadrant pain. Patient dates her pain started 5 days ago. Patient states the pain is worsening. Patient states the pain is better with rest and worse with movement. Patient states is no change in pain with eating. Patient denies dysuria. Patient denies fever and chills. Patient denies nausea vomiting. Patient states the pain is severe and sharp and intense. Patient denies chest pain or shortness of breath. Patient denies recent travel. Patient denies recent international travel. Patient denies exposure to the novel coronavirus. Patient denies sick contacts. Patient denies fever and chills. Patient denies cough. Patient denies diarrhea. Patient denies coming in contact with anybody with symptoms of the novel coronavirus. MD Complaint: abdominal pain, flank pain -: Sudden, days(s) Location: RUQ, R flank Radiation: back Migration to: no migration Severity: severe Severity scale (0 -10): 10 Quality: stabbing, sharp Consistency: constant Improves With: rest Worsens With: movement Associated Symptoms: denies: nausea, vomiting, fever, chills, constipation, dysuria, hematemesis, hematochezia, melena, hematuria, anorexia, syncope - Related Data LMP (females 10-50): unknown Home Medications Medication Instructions Recorded Confirmed Last Taken Potassium Chloride [Klor-Con 10] 20 meq PO DAILY 09/22/13 07/12/17 06/09/14 08:00 atenoloL [Tenormin] 50 mg PO DAILY 09/22/13 07/12/17 06/09/14 08:00 lisinopriL [Zestril TAB] 20 mg PO QDAY 09/22/13 07/12/17 06/09/14 08:00 Triamterene/Hydrochlorothiazid 1 cap PO QDAY 07/12/17 07/12/17 Unknown [Triamterene-Hctz 50-25 mg Cap] Previous Rx's Medication Instructions Recorded Last Taken Type Acetaminophen/Codeine [Tylenol 1 tab PO Q6H PRN #10 tab 03/14/21 Unknown Rx /Codeine # 3 tab] Ciprofloxacin HCl 500 mg PO BID 10 Days #20 tablet 03/14/21 Unknown Rx Allergies Allergy/AdvReac Type Severity Reaction Status Date / Time No Known Allergies Allergy Unverified 09/22/13 11:12 ED Review of Systems ROS: Stated complaint: BACK PAIN Other details as noted in HPI Constitutional: denies: chills, fever Eyes: denies: eye pain, eye discharge, vision change ENT: denies: ear pain, throat pain Respiratory: denies: cough, shortness of breath, wheezing Cardiovascular: denies: chest pain, palpitations Endocrine: no symptoms reported Gastrointestinal: as per HPI, abdominal pain. denies: nausea, diarrhea Genitourinary: denies: urgency, dysuria, discharge Musculoskeletal: as per HPI, back pain. denies: joint swelling, arthralgia Skin: denies: rash, lesions Neurological: denies: headache, weakness, paresthesias Psychiatric: denies: anxiety, depression Hematological/Lymphatic: denies: easy bleeding, easy bruising ED Past Medical Hx - Past Medical History Previous Medical History?: Yes Hx Hypertension: Yes Hx Headaches / Migraines: Yes Additional medical history: sleep apnea - Surgical History Past Surgical History?: Yes Additional Surgical History: breast surgery 82, left knee pain 2006,PARTIAL HYSTERECTOMY - Family History Family history: no significant - Social History Smoking Status: Never Smoker - Medications Home Medications: Home Medications Medication Instructions Recorded Confirmed Last Taken Type Potassium Chloride [Klor-Con 10] 20 meq PO DAILY 09/22/13 07/12/17 06/09/14 08:00 History atenoloL [Tenormin] 50 mg PO DAILY 09/22/13 07/12/17 06/09/14 08:00 History lisinopriL [Zestril TAB] 20 mg PO QDAY 09/22/13 07/12/17 06/09/14 08:00 History Triamterene/Hydrochlorothiazid 1 cap PO QDAY 07/12/17 07/12/17 Unknown History [Triamterene-Hctz 50-25 mg Cap] Acetaminophen/Codeine [Tylenol 1 tab PO Q6H PRN #10 tab 03/14/21 Unknown Rx /Codeine # 3 tab] Ciprofloxacin HCl 500 mg PO BID 10 Days #20 tablet 03/14/21 Unknown Rx ED Physical Exam - General Limitations: No Limitations General appearance: alert, in no apparent distress - Head Head exam: Present: atraumatic, normocephalic - Eye Eye exam: Present: normal appearance - ENT ENT exam: Present: mucous membranes moist - Neck Neck exam: Present: normal inspection - Respiratory Respiratory exam: Present: normal lung sounds bilaterally. Absent: respiratory distress - Cardiovascular Cardiovascular Exam: Present: regular rate, normal rhythm. Absent: systolic murmur, diastolic murmur, rubs, gallop - GI/Abdominal GI/Abdominal exam: Present: soft, tenderness (Right upper quadrant tenderness palpation, right flank tenderness to palpation.), normal bowel sounds - Extremities Exam Extremities exam: Present: normal inspection - Back Exam Back exam: Present: normal inspection, tenderness, CVA tenderness (R) - Neurological Exam Neurological exam: Present: alert, oriented X3 - Psychiatric Psychiatric exam: Present: normal affect, normal mood - Skin Skin exam: Present: warm, dry, intact, normal color. Absent: rash ED Course Vital Signs 03/14/21 02:41 Pulse Rate 68 Respiratory 18 Rate Blood Pressure 111/60 [Left] O2 Sat by Pulse 96 Oximetry - Reevaluation(s) Reevaluation #1: Patient states he is feeling much better. Patient states she is ready to go. I discussed all results and clinical findings with patient. I discussed plan of care with patient. Patient agrees with plan of care. Patient is stable for discharge. Patient will be discharged home. Patient given discharge instructions. Patient voiced understanding of discharge instructions. 03/14/21 03:54 ED Medical Decision Making - Lab Data Result diagrams: 03/13/21 20:22 03/13/21 20:22 - Radiology Data Radiology results: report reviewed CT ABDOMEN AND PELVIS WITH CONTRAST INDICATION / CLINICAL INFORMATION: Right flank and right upper quadrant pain. TECHNIQUE: Axial CT images were obtained through the abdomen and pelvis after 100 cc Omnipaque [address] scans at this location are performed using CT dose reduction for ALARA by means of automated exposure control. COMPARISON: None available. FINDINGS: LOWER CHEST: No significant abnormality. LIVER: There is generalized steatosis without other significant abnormalities. GALLBLADDER: No significant abnormality. BILE DUCTS: No significant abnormality. PANCREAS: No significant abnormality. SPLEEN: No significant abnormality. ADRENALS: No significant abnormality. RIGHT KIDNEY / URETER: No significant abnormality. LEFT KIDNEY / URETER: No significant abnormality. STOMACH / SMALL BOWEL: No significant abnormality. COLON: No significant abnormality. APPENDIX: No significant abnormality. PERITONEUM: No free fluid. No free air. No fluid collection. LYMPH NODES: No significant adenopathy. AORTA / ARTERIES: No significant abnormality. IVC / VEINS: No significant abnormality. URINARY BLADDER: No significant abnormality. REPRODUCTIVE ORGANS: Prior hysterectomy. A right ovarian cyst measures 6.3 x 3.2 cm on image 126 of series 2. No other significant abnormality. ADDITIONAL FINDINGS: None. SKELETAL SYSTEM: No acute abnormalities. Mild degenerative changes are present throughout the spine. IMPRESSION: 1. No acute abnormalities to explain the patient's pain. 2. Incidental right ovarian cyst as above. A nonemergent pelvic ultrasound is recommended for further evaluation. 3. Additional findings as above. - Medical Decision Making Patient is a 55-year-old female presents emergency room with complaints of back pain, flank pain, right upper quadrant pain. Patient labs are unremarkable except for UTI and mild renal insufficiency. Patient given IV fluids, Dilaudid, Zofran and antibiotics in the ER. Patient initially given fluids, Dilaudid and Zofran and the patient responded well. Patient's pain had resolved prior to discharge. Patient after labs came back given Rocephin. Patient had a CT scan of the abdomen which was negative for acute findings of for a ovarian cyst. Patient stable for discharge. Patient discharged home. Patient given discharge instructions and prescriptions. - Differential Diagnosis Abdominal pain, flank pain, UTI, pyelo, dehydration, Critical care attestation.: If time is entered above; I have spent that time in minutes in the direct care of this critically ill patient, excluding procedure time. ED Disposition Clinical Impression: Right flank pain, Dehydration, Mild renal insufficiency Abdominal pain Qualifiers: Abdominal location: right upper quadrant Qualified Code(s): R10.11 - Right upper quadrant pain UTI (urinary tract infection) Qualifiers: Urinary tract infection type: acute cystitis Hematuria presence: with hematuria Qualified Code(s): N30.01 - Acute cystitis with hematuria Ovarian cyst Qualifiers: Laterality: right Qualified Code(s): N83.201 - Unspecified ovarian cyst, right side Back pain Qualifiers: Back pain location: low back pain Chronicity: acute Back pain laterality: bilateral Sciatica presence: without sciatica Qualified Code(s): M54.5 - Low back pain Disposition: TO HOME OR SELFCARE Is pt being admited?: No Does the pt Need Aspirin: No Condition: Stable Instructions: Abdominal Pain (ED), Abdominal Pain, Adult, [id number], Antibiotic Medicine, Adult, Dehydration, Adult, [id number], Urinary Tract Infection, Adult, [id number], Flank Pain, Adult Additional Instructions: Patient to follow-up with primary care in 2 to 3 days. Patient to follow-up with INSTALLATION COORDINATOR in 2 to 3 days. Patient to rest. Patient to increase water. Patient to eat a low-salt diet. Patient eat a heart healthy diet. Patient to take Tylenol as needed for pain. Patient to continue all medications. Patient to take meds as directed. Patient to return to the ER if condition worsens, changes or new symptoms arise. Prescriptions: Ciprofloxacin HCl 500 mg PO BID 10 Days #20 tablet Acetaminophen/Codeine [Tylenol /Codeine # 3 tab] 1 tab PO Q6H PRN #10 tab PRN Reason: Pain , Severe (7-10) Referrals: PRIMARY CARE, [Primary Care Provider] - 2-3 Days Time of Disposition: 04:02
--- NOTE | 2021-03-14 03:37 | Cat Scan Report ---
CT ABDOMEN AND PELVIS WITH CONTRAST INDICATION / CLINICAL INFORMATION: Right flank and right upper quadrant pain. TECHNIQUE: Axial CT images were obtained through the abdomen and pelvis after 100 cc Omnipaque [address] scans at this location are performed using CT dose reduction for ALARA by means of automated exposure control. COMPARISON: None available. FINDINGS: LOWER CHEST: No significant abnormality. LIVER: There is generalized steatosis without other significant abnormalities. GALLBLADDER: No significant abnormality. BILE DUCTS: No significant abnormality. PANCREAS: No significant abnormality. SPLEEN: No significant abnormality. ADRENALS: No significant abnormality. RIGHT KIDNEY / URETER: No significant abnormality. LEFT KIDNEY / URETER: No significant abnormality. STOMACH / SMALL BOWEL: No significant abnormality. COLON: No significant abnormality. APPENDIX: No significant abnormality. PERITONEUM: No free fluid. No free air. No fluid collection. LYMPH NODES: No significant adenopathy. AORTA / ARTERIES: No significant abnormality. IVC / VEINS: No significant abnormality. URINARY BLADDER: No significant abnormality. REPRODUCTIVE ORGANS: Prior hysterectomy. A right ovarian cyst measures 6.3 x 3.2 cm on image 126 of s eries 2. No other significant abnormality. ADDITIONAL FINDINGS: None. SKELETAL SYSTEM: No acute abnormalities. Mild degenerative changes are present throughout the spine. IMPRESSION: 1. No acute abnormalities to explain the patient's pain. 2. Incidental right ovarian cyst as above. A nonemergent pelvic ultrasound is recommended for further evaluation. 3. Additional findings as above. Signer Name: To Benavides MD Signed: 03/14/2021 3:32 AM Workstation Name: [id number]
[2021-03-14] MEDS ORDERED: cefTRIAXone/NS 2 GM/100 ML 2 GM/100 ML BAG IV ONE (03:55)
[2021-03-14 05:22] VITALS: BP 109/78
== END 2021-03-14 05:22 | disposition home or self-care (01) ==
LOC: ED 16:30
DX: E86.0 Dehydration (principal); N28.9 Disorder of kidney and ureter, unspecified; N39.0 Urinary tract infection, site not specified; N83.201 Unspecified ovarian cyst, right side; M54.5 Low back pain; I10 Essential (primary) hypertension; G43.909 Migraine, unspecified, not intractable, without status migrainosus; G47.30 Sleep apnea, unspecified; Z98.890 Other specified postprocedural states; Z79.899 Other long term (current) drug therapy
CPT/HCPCS: 36415; 74177; 80053; 81001; 83690; 85025; 96361; 96365; 96375; 99284; J0696; J1170; J2405; J7030; Q9967